=== PATIENT | female | born 2000 | race Caucasian/White ===

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

== ENCOUNTER 2021-04-04 11:35 | Emergency (ER) | payer OTHER ==
[~2021-04-04] VITALS: Ht 160 cm; Wt 46.7 kg
[~2021-04-04 11:35] MED LIST changes: +ALLEGRA ALLERG180 MG PO; +AZITHROMYCIN250 MG PO; +DECADRON6 MG PO; +FLONASE16 GM NASAL
== END 2021-04-04 14:48 | disposition home or self-care (01) ==
LOC: ER 11:35
DX: R07.0 Pain in throat (principal); Z20.822 Contact with and (suspected) exposure to COVID-19

== ENCOUNTER → 2023-05-09 | Emergency (ER) | payer OTHER ==
[~2023-05-09] VITALS: Ht 162.6 cm; Wt 52.2 kg
== END | disposition left against medical advice (07) ==
LOC: ER 18:22
DX: Z53.21 Procedure and treatment not carried out due to patient leaving prior to being seen by health care provider (principal)